=== PATIENT | male | born 1950 | race African-American/Black ===

== ENCOUNTER 2019-06-19 14:37 | Emergency (ER) | payer MEDICAID, MEDICARE ==
--- NOTE | 2019-06-19 15:00 | EDM.PDOC ---
ED HPI GENERAL MEDICAL PROBLEM - General Chief Complaint: Cardiovascular Problem Stated Complaint: NUMBNESS Time Seen by Provider: 06/19/19 15:00 Source of Information: Reports: Patient History Limitations: Reports: No Limitations - History of Present Illness INITIAL COMMENTS - FREE TEXT/NARRATIVE: HISTORY AND PHYSICAL: History of present illness: Patient is a 68-year-old male presents to the ED with complaint of numbness and right hand weakness 2 days ago. He states the symptoms have since resolved but 2 days ago he was trying to shave but couldn't get a good adz worker on his razor with his right hand. He states he then had numbness of both upper extremities, face, and back. He states he also had a headache that day. Symptoms have since resolved and he states he was seeing PER[facility]ONE[facility] DIAL[facility] REGISTERED NURSE in oncology and was told to come to the ED due to elevated blood pressure. Patient sees oncology for prostate cancer. He denies chest pain, shortness of breath, headache, dizziness, weakness, abdominal pain, nausea, vomiting, diarrhea. He had a CBC and CMP done in oncology today which are unremarkable. Review of systems: As per history of present illness and below otherwise all systems reviewed and negative. Past medical history: As per history of present illness and as reviewed below otherwise noncontributory. Surgical history: As per history of present illness and as reviewed below otherwise noncontributory. Social history: No reported history of drug or alcohol abuse. Family history: As per history of present illness and as reviewed below otherwise noncontributory. Physical exam: General: Patient sitting comfortably in no acute distress and nontoxic appearing HEENT: Atraumatic, normocephalic, pupils reactive, negative for conjunctival pallor or scleral icterus, mucous membranes moist, throat clear, neck supple, nontender, trachea midline. No meningeal signs. Lungs: Clear to auscultation, breath sounds equal bilaterally, chest nontender. Heart: S1S2, regular, negative for clicks, rubs, or overt murmur. Abdomen: Soft, nondistended, nontender. Negative for masses or hepatosplenomegaly. Negative for costovertebral tenderness. No rigidity, rebound , guarding. Pelvis: Stable nontender. Genitourinary: Deferred. Rectal: Deferred. Extremities: Atraumatic, negative for cords or calf pain. Neurovascular unremarkable. Neuro: Awake, alert, oriented. Cranial nerves II through XII unremarkable. Cerebellum unremarkable. Motor and sensory unremarkable throughout. Exam nonfocal. Notes: Patient informed of CT results, he has no symptoms at this time and neuro exam is completely unremarkable. He was advised to follow up with neurology and to return to ED if he develops new or worsening symptoms. Diagnostics: EKG, Head CT Therapeutics: [] Prescriptions: Impression: Medical screening exam Plan: Follow up with primary care provider and neurology Return to ED as needed as discussed Definitive disposition and diagnosis as appropriate pending reevaluation and review of above. - Related Data Allergies Allergy/AdvReac Type Severity Reaction Status Date / Time No Known Allergies Allergy Verified 06/19/19 14:46 Home Meds: Home Meds Aspirin [Low Dose Aspirin EC] 81 mg PO DAILY PRN 06/19/19 [History] Ibuprofen 200 mg PO DAILY PRN 06/19/19 [History] Past Medical History - Past Health History Medical/Surgical History: Denies Medical/Surgical History Oncologic (Cancer) History: Reports: Prostate - Past Surgical History Male Surgical History: Reports: Prostate Biopsy Social & Family History - Family History Family Medical History: Noncontributory - Tobacco Use Smoking Status *Q: Never Smoker - Recreational Drug Use Recreational Drug Use: No ED ROS GENERAL - Review of Systems Review Of Systems: ROS reveals no pertinent complaints other than HPI. ED EXAM, GENERAL - Physical Exam Exam: See Below (see dictation) Course - Vital Signs Last Recorded V/S: Last Vital Signs Temp 96.9 F 06/19/19 14:41 Pulse 66 06/19/19 14:41 Resp 18 06/19/19 14:41 BP 154/79 H 06/19/19 14:41 Pulse Ox 100 06/19/19 14:41 - Orders/Labs/Meds Orders: Active Orders 24 hr Category Date Time Status EKG Documentation Completion [RC] STAT Care 06/19/19 14:48 Active Labs: Laboratory Tests 06/19/19 Range/Units 15:35 Urine Color YELLOW Urine Appearance CLEAR Urine pH 5.0 (5.0-8.0) Ur Specific [place] 1.025 (1.001-1.035) Urine Protein NEGATIVE (NEGATIVE) mg/dL Urine Glucose (UA) NEGATIVE (NEGATIVE) mg/dL Urine Ketones NEGATIVE (NEGATIVE) mg/dL Urine Occult Blood NEGATIVE (NEGATIVE) Urine Nitrite NEGATIVE (NEGATIVE) Urine Bilirubin NEGATIVE (NEGATIVE) Urine Urobilinogen 0.2 (<2.0) EU/dL Ur Leukocyte Esterase NEGATIVE (NEGATIVE) Departure - Departure Time of Disposition: 16:06 Disposition: Home, Self-Care 01 Condition: Good Clinical Impression: Encounter for medical screening examination Instructions: Medical Screening Exam Referrals: PCP,Unknown [Primary Care Provider] - Forms: ED Department Discharge Additional Instructions: The following information is given to patients seen in the emergency department who are being discharged to home. This information is to outline your options for follow-up care. We provide all patients seen in our emergency department with a follow-up referral. The need for follow-up, as well as the timing and circumstances, are variable depending upon the specifics of your emergency department visit. If you don't have a primary care physician on staff, we will provide you with a referral. We always advise you to contact your personal physician following an emergency department visit to inform them of the circumstance of the visit and for follow-up with them and/or the need for any referrals to a consulting specialist. The emergency department will also refer you to a specialist when appropriate. This referral assures that you have the opportunity for follow-up care with a specialist. All of these measure are taken in an effort to provide you with optimal care, which includes your follow-up. Under all circumstances we always encourage you to contact your private physician who remains a resource for coordinating your care. When calling for follow-up care, please make the office aware that this follow-up is from your recent emergency room visit. If for any reason you are refused follow-up, please contact the [facility] at and asked to speak to the emergency department charge nurse. [facility] [address] [place] [id number] [address] [facility] - Neurology Professional Building [address] [place] [address], [address] [place] [address] Follow up with primary care provider and neurology Return to ED as needed as discussed - My Orders Last 24 Hours: My Active Orders 06/19/19 14:48 EKG Documentation Completion [RC] STAT - Assessment/Plan Last 24 Hours: My Active Orders 06/19/19 14:48 EKG Documentation Completion [RC] STAT
--- NOTE | 2019-06-19 15:41 | CT ---
Head CT Technique: Multiple axial sections through the brain were obtained. Intravenous contrast was not utilized. Comparison: No prior intracranial imaging. Findings: Ventricles along with basal cisterns and sulci over the convexities are mildly prominent. Mild diminished density is noted within the periventricular white matter compatible with small vessel ischemic demyelination change. 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 No other abnormal parenchymal densities are seen. No evidence of intracranial hemorrhage. No midline shift or mass effect is seen. Bone window settings were reviewed which shows no acute calvarial abnormality. Mastoid sinuses are clear. Nothing acute is seen within the visualized paranasal sinuses. Impression: Senescent change as noted above. Nothing acute is appreciated on noncontrast head CT study. Note: If patient has persistent symptoms, MRI could then be considered. Diagnostic code #2 MTDD
== END 2019-06-19 16:25 | disposition home or self-care (01) ==
LOC: MW.ED 14:37
DX: Z13.9 Encounter for screening, unspecified (principal); I10 Essential (primary) hypertension; Z87.891 Personal history of nicotine dependence; Z85.46 Personal history of malignant neoplasm of prostate
CPT/HCPCS: 70450; 70450-26; 81003; 99283; 99284-25

== ENCOUNTER 2021-10-07 14:46 | Emergency (ER) | payer MEDICARE ==
[2021-10-07] MEDS ORDERED: cloNIDine 0.1 MG Tab PO ONE (15:41)
== END 2021-10-07 16:36 ==
LOC: MW.ED 14:46
DX: I10 Essential (primary) hypertension (principal); Z79.82 Long term (current) use of aspirin
CPT/HCPCS: 99283; A9270; 99282

== ENCOUNTER 2022-06-12 02:29 | Observation (INO) | payer MEDICARE ==
[2022-06-12] MEDS ORDERED: Ondansetron 4 MG/2 ML SDV IVPUSH ONE (02:35)
[2022-06-12] MEDS ORDERED: HYDROmorphone 2 MG/ML Syringe IVPUSH ONE ×2 (03:13→05:16)
[2022-06-12 03:25] LABS: POTASSIUM,K 3.4 mmol/L (3.5-5.1)
[2022-06-12] MEDS ORDERED: Iopamidol 755 MG/ML 500 ML Multipack Bottle IVPUSH ONE (04:54)
[2022-06-12] MEDS ORDERED: Docusate Sodium 100 MG Cap PO PRN (07:51)
[2022-06-12] MEDS ORDERED: Sodium Chloride 0.9% 10 ML Syringe FLUSH PRN (07:51)
[2022-06-12] MEDS ORDERED: Acetaminophen 325 MG Tab PO PRN (07:51)
[2022-06-12] MEDS ORDERED: Sodium Chloride 0.9% 2.5 ML Syringe FLUSH PRN (07:51)
[2022-06-12] MEDS ORDERED: Polyethylene Glycol 3350 Powder 17 GM Packet PO PRN (07:51)
[2022-06-12] MEDS ORDERED: Ondansetron 4 MG/2 ML SDV IVPUSH PRN (07:51)
[2022-06-12] MEDS ORDERED: HYDROmorphone 2 MG/ML Syringe IVPUSH PRN (07:51)
[2022-06-12] MEDS ORDERED: cloNIDine 0.1 MG Tab PO ONE (09:44)
[2022-06-12] MEDS: oxyCODONE 5 MG Tab PO PRN ×2 (10:01→16:37)
[2022-06-12] MEDS: amLODIPine 5 MG Tab PO SCH (10:03)
[2022-06-12] MEDS ORDERED: hydrALAZINE 20 MG/ML SDV IVPUSH PRN (12:38)
[2022-06-13 06:34] LABS: CARBON DIOXIDE,CO2 29.2 mmol/L (21.0-32.0); POTASSIUM,K 3.8 mmol/L (3.5-5.1)
[2022-06-13] MEDS ORDERED: Lisinopril 10 MG Tab PO SCH (09:00)
[2022-06-13] MEDS: amLODIPine 5 MG Tab PO SCH (09:30)
[2022-06-13] MEDS: oxyCODONE 5 MG Tab PO PRN (09:30)
== END 2022-06-13 14:45 | disposition home or self-care (01) ==
LOC: MW.ED 02:29 → MW.MS 05:17
PROVIDERS: ADMIT Internal Medicine; ATTEND Internal Medicine
DX: C34.31 Malignant neoplasm of lower lobe, right bronchus or lung (principal); C61 Malignant neoplasm of prostate; I10 Essential (primary) hypertension; R07.9 Chest pain, unspecified; R59.0 Localized enlarged lymph nodes; Z79.899 Other long term (current) drug therapy; Z87.891 Personal history of nicotine dependence; Z20.822 Contact with and (suspected) exposure to COVID-19; Z98.890 Other specified postprocedural states
CPT/HCPCS: 36415; 71045; 71275; 80048; 80053; 81001; 83690; 84443; 84484; 85025; 85610; 85730; 93005; A9270; G0378; J1170; J2405; Q9967; U0002